=== PATIENT | male | born 1970 | race Two or more races ===

== ENCOUNTER 2021-03-26 13:37 | Inpatient (IN) | payer OTHER ==
[2021-03-26] MEDS ORDERED: ACETAMINOPHEN 325 MG TABLET (FP) PO PRN ×2 (14:55)
[2021-03-26] MEDS ORDERED: MAGNESIUM CITRATE 300 ML BOTTLE PO PRN (14:55)
[2021-03-26] MEDS ORDERED: IBUPROFEN 400 MG TABLET (FP) PO PRN (14:55)
[2021-03-26] MEDS ORDERED: BISMUTH SUBSALICYLATE 262 MG/15 ML BTL PO PRN (14:55)
[2021-03-26] MEDS ORDERED: methaDONE HCL 10 MG TABLET (FOR DETOX USE ONLY) PO ONE (14:55)
[2021-03-26] MEDS ORDERED: MENTHOL/PHENOL 1 EACH UD MM PRN (14:55)
[2021-03-26] MEDS ORDERED: cloNIDine HCL 0.1 MG TABLET PO PRN (14:55)
[2021-03-26] MEDS ORDERED: NICOTINE 10 MG CARTRIDGE (INHALER) IH PRN (14:55)
[2021-03-26] MEDS ORDERED: METHOCARBAMOL 500 MG TABLET PO PRN (14:55)
[2021-03-26] MEDS ORDERED: MAGNESIUM HYDROX 2400MG/30ML ORAL SUSPENSION 30 ML CUP PO PRN (14:55)
[2021-03-26] MEDS ORDERED: ONDANSETRON *ODT* 4 MG TABLET SL PRN (14:55)
[2021-03-26] MEDS ORDERED: MAG HYDROX/AL HYDROX/SIMETH 30 ML UNIT-DOSE CUP PO PRN (14:55)
[2021-03-26] MEDS ORDERED: NICOTINE 7 MG/24 HOURS TOPICAL PATCH TD SCH (15:00)
[2021-03-26 15:22] VITALS: BMI 25.2
[2021-03-26] MEDS: PRENATAL VITAMINS W/ FOLIC ACID TABLET (FP) PO SCH (18:31)
[2021-03-26] MEDS: hydrOXYzine PAMOATE 25 MG CAPSULE (FP) PO SCH ×2 (18:34→23:12)
[2021-03-26] MEDS ORDERED: TRIMETHOBENZAMIDE HCL 200MG/2ML INJ IM ONE (20:42)
[2021-03-26] MEDS: MELATONIN 5 MG TABLETS PO SCH (23:12)
[2021-03-26] MEDS: THIAMINE HCL 100 MG TABLET (FP) PO SCH (23:12)
[2021-03-27] MEDS: hydrOXYzine PAMOATE 25 MG CAPSULE (FP) PO SCH ×5 (08:28→22:26)
[2021-03-27] MEDS ORDERED: methaDONE HCL 10 MG TABLET (FOR DETOX USE ONLY) ONE (09:47)
[2021-03-27] MEDS: PRENATAL VITAMINS W/ FOLIC ACID TABLET (FP) PO SCH (10:47)
[2021-03-27] MEDS: NICOTINE 21 MG/24 HOURS TOPICAL PATCH TD SCH (10:48)
[2021-03-27 14:49] LABS: CALCIUM 8.9 mg/dL (8.5-10.1)
[2021-03-27 14:50] LABS: BLOOD UREA NITROGEN 14.5 mg/dL (7-18)
[2021-03-27 14:53] LABS: ALBUMIN 2.8 g/dl (3.4-5.0); CREATININE 0.7 mg/dL (0.55-1.3)
[2021-03-27 14:54] LABS: BILIRUBIN,TOTAL 0.4 mg/dL (0.2-1); HEMATOCRIT 37.9 % (35.4-49); HEMOGLOBIN 12.3 GM/dL (11.7-16.9); MCH 28.2 pg (25.7-33.7); MCHC 32.6 g/dl (32.0-35.9); MEAN CELL VOLUME 86.7 fl (80-96); MEAN PLT VOLUME 6.9 fl (7.5-11.1); PLATELET COUNT 443 10^3/uL (134-434); RBC 4.36 M/mm3 (4.00-5.60); RDW 14.1 % (11.9-15.9); WHITE BLOOD COUNT 5.2 K/mm3 (4.0-10.0)
[2021-03-27] MEDS: ASPIRIN 81 MG CHEWABLE TABLETS PO SCH (18:04)
[2021-03-27] MEDS: THIAMINE HCL 100 MG TABLET (FP) PO SCH (22:26)
[2021-03-27] MEDS: MELATONIN 5 MG TABLETS PO SCH (22:26)
[2021-03-28] MEDS: hydrOXYzine PAMOATE 25 MG CAPSULE (FP) PO SCH ×6 (05:35→22:24)
[2021-03-28] MEDS: diazePAM 5 MG TABLET PO PRN ×4 (05:36→23:09)
[2021-03-28] MEDS ORDERED: methaDONE HCL 10 MG TABLET (FOR DETOX USE ONLY) PO ONE (10:00)
[2021-03-28] MEDS: PRENATAL VITAMINS W/ FOLIC ACID TABLET (FP) PO SCH (10:10)
[2021-03-28] MEDS: ASPIRIN 81 MG CHEWABLE TABLETS PO SCH ×2 (10:10→11:38)
[2021-03-28] MEDS: NICOTINE 21 MG/24 HOURS TOPICAL PATCH TD SCH (10:11)
[2021-03-28 21:33] VITALS: BP 142/73; PULSE 80; TEMP 97.3
[2021-03-28] MEDS: THIAMINE HCL 100 MG TABLET (FP) PO SCH (22:24)
[2021-03-28] MEDS: MELATONIN 5 MG TABLETS PO SCH (22:24)
[2021-03-30] MEDS ORDERED: methaDONE HCL 10 MG TABLET (FOR DETOX USE ONLY) PO ONE (10:00)
== END 2021-03-29 06:45 | disposition left against medical advice (07) | DRG 770 ==
LOC: YASAS 13:37 → Y3N 15:08
PROVIDERS: ADMIT Allergy & Immunology; ATTEND Allergy & Immunology
PROC: HZ2ZZZZ Detoxification Services for Substance Abuse Treatment (ICD-10-PCS; principal; 2021-03-25)
DX: F11.23 Opioid dependence with withdrawal (principal); F14.20 Cocaine dependence, uncomplicated; F12.10 Cannabis abuse, uncomplicated; F17.210 Nicotine dependence, cigarettes, uncomplicated; F32.A Depression, unspecified; Z91.013 Allergy to seafood
CPT/HCPCS: 36415; 80053; 85027; 86780; C9803; U0003; U0005